=== PATIENT | female | born 1945 | race Caucasian/White ===

== ENCOUNTER 2017-08-13 06:48 | Day surgery (SDC) | payer MEDICARE ==
[~2017-08-13] VITALS: Ht 157.5 cm; Wt 59.0 kg
--- NOTE | ~2017-08-13 | OP ---
PATIENT NAME: TIMOTHY CORDOVA MEDICAL RECORD: [id number] :43 LOCATION:[facility] ADMISSION DATE: SURGEON: SAMANTHA SRIVASTAVA MD DATE OF OPERATION: 08/13/2017 REFERRING PHYSICIAN: Gagan Butler MD PREOPERATIVE DIAGNOSIS: End-stage renal disease. POSTOPERATIVE DIAGNOSIS: End-stage renal disease. OPERATION PERFORMED: Creation of a left brachiocephalic Renae type arteriovenous fistula. SURGEON: Samantha Srivastava MD ANESTHESIA: Regional nerve block plus MAC per WEARING APPAREL FOLDER. PREOPERATIVE NOTE: Ms. Cordova is a 72-year-old white female patient from [place], [place]. She has end-stage renal disease and requires long-term access. I have brought her to the operating room as an outpatient today to do a fistula in her left arm. DESCRIPTION OF PROCEDURE: Under anesthesia including a nerve block, the patient was placed in supine position, prepped and draped in a sterile manner. I examined her arm with Duplex ultrasound after applying topical nitroglycerin and using a Mirian drain as a proximal venous tourniquet. The patient's cephalic vein from antecubital space to the deltopectoral groove was adequate for use. The brachial artery appeared adequate as well. A transverse antecubital incision was made and these vessels were exposed, dissected from the surrounding structures and occluded, and retracted as needed with Silastic vessel loops. The vein was divided distally and ligated with 3-0 Vicryl and tributaries similarly ligated and divided. The brachial artery was mobilized fully and looped with Silastic vessel loops. The vessels were treated with topical papaverine. The vein was then transected and beveled and prepared for anastomosis. The artery was occluded and opened for a distance of about 6 mm. The artery was flushed proximally and distally with heparinized saline as was the vein and an end-to-side, end of vein to side of artery anastomosis was then done with running 7-0 Prolene, and when complete his suture line was hemostatic and good flow was established within the fistula. The wound was irrigated with Ancef and gentamicin solution. Hemostasis obtained with electrocautery. Repeated Doppler examination revealed good continuous pulsatile Doppler flow in the fistula and in the vessels distally. The wound was irrigated with Ancef/gentamicin solution and then closed with interrupted inverted 3-0 Vicryl and running intracuticular 4-0 Monocryl and Dermabond glue. It was dressed with Maxorb Ag, Tegaderm, and Cavilon skin prep. The patient was then taken to the recovery room in stable condition, was transferred to go home later today and follow up with me in my office next week. She was given a prescription for Tramadol 50 mg 1 p.o. every 4 hours p.r.n. for pain, 10 tablets, no refills. She is to continue her renal diet and activities, meds, etc. She may shower and wash over the waterproof plastic dressing as desired. TRANSINT:[id number] Voice Confirmation ID: [id number] DOCUMENT ID: [id number] OPERATIVE REPORT [id number] TIMOTHY CORDOVA JAMES MD at 1123 CC: GAGAN BUTLER MD [id number] DICTATION DATE: 08/13/17 1207 TELEGRAPH DISPATCHER: 08/13/17 1350 [facility] 08/13/[address] [address]
[2017-08-13 07:29] LABS: BASOPHILS 0.7 % (0-2); EOSINOPHILS 7.9 % (0-7); HEMATOCRIT 35.3 % (36.0-48.0); HEMOGLOBIN 11.5 g/dL (12-16); IMMATURE GRANULOCYTES 0.2 % (0-5); LYMPHOCYTES 19.1 % (15-50); MCH 29.7 pg (26.0-34.0); MCHC 32.6 g/dL (31.0-37.0); MCV 91.2 fL (80.0-100.0); MEAN PLATELET VOLUME 10.3 fL (7.4-10.4); MONOCYTES 16.7 % (2-11); NEUTROPHILS 55.4 % (40-80); PLATELET COUNT 217 10x3/uL (130-400); RBC 3.87 10x6/uL (4.00-5.40); RDW 15.9 % (11.5-14.5); WBC 4.6 10x3/uL (4.8-10.8)
[2017-08-13 07:40] LABS: APTT 30.7 SECONDS (22.8-39.4); INR 0.97 (0.85-1.17); PROTIME 12.5 SECONDS (11.6-15.0)
[2017-08-13 07:41] LABS: ANION GAP 10.5 mmol/L (8-16); CALCIUM 8.3 mg/dL (8.5-10.1); CARBON DIOXIDE 30.2 mmol/L (21.0-32.0); CREATININE - SERUM 4.2 mg/dL (0.6-1.3); POTASSIUM - SERUM 3.7 mmol/L (3.5-5.1)
[2017-08-13] MEDS ORDERED: METOPROLOL TART50 MG PO (08:29)
[2017-08-13 08:48] VITALS: Ht 157.5 cm; Wt 59.0 kg
[2017-08-13] MEDS ORDERED: RENVELA800 MG PO (09:09)
[2017-08-13] MEDS ORDERED: HYDRALAZINE HCL50 MG PO (09:10)
[2017-08-13] MEDS ORDERED: FUROSEMIDE40 MG PO (09:10)
[2017-08-13] MEDS ORDERED: DOXYCYCLINE HY100 M2 PO (09:11)
[2017-08-13] MEDS ORDERED: NORVASC5 MG PO (09:11)
[2017-08-13] MEDS ORDERED: CARDURA2 MG PO (09:12)
[2017-08-13] MEDS ORDERED: LOVASTATIN40 MG PO (09:12)
[2017-08-13] MEDS ORDERED: HYDROCODON-ACE1 EAC7 PO (09:13)
[2017-08-13] MEDS ORDERED: ULTRAM50 MG PO (11:57)
== END 2017-08-13 14:30 | disposition home or self-care (01) ==
LOC: D.OPS 06:48
PROVIDERS: Surgery
DX: N18.6 End stage renal disease (principal); Z99.2 Dependence on renal dialysis; Z01.812 Encounter for preprocedural laboratory examination

== ENCOUNTER 2020-07-05 07:05 | Day surgery (SDC) | payer MEDICARE ==
[~2020-07-05] VITALS: Ht 157.5 cm; Wt 72.6 kg
[~2020-07-05 07:05] MED LIST: CARDURA2 MG PO; DOXYCYCLINE HY100 M2 PO; FUROSEMIDE40 MG PO; HYDRALAZINE HCL50 MG PO; HYDROCODON-ACE1 EAC7 PO; LOVASTATIN40 MG PO; METOPROLOL TART50 MG PO; NORVASC5 MG PO; RENVELA800 MG PO; ULTRAM50 MG PO
[2020-07-05 07:27] LABS: BASOPHILS 1.3 % (0-2); EOSINOPHILS 6.1 % (0-7); HEMATOCRIT 32.1 % (36.0-48.0); HEMOGLOBIN 10.8 g/dL (12-16); LYMPHOCYTES 13.3 % (15-50); MCH 31.1 pg (26.0-34.0); MCHC 33.5 g/dL (31.0-37.0); MCV 92.7 fL (80.0-100.0); MEAN PLATELET VOLUME 8.8 fL (7.4-10.4); MONOCYTES 14.1 % (2-11); NEUTROPHILS 65.2 % (40-80); PLATELET COUNT 222 10x3/uL (130-400); RBC 3.46 10x6/uL (4.00-5.40); RDW 14.2 % (11.5-14.5); WBC 6.8 10x3/uL (4.8-10.8)
[2020-07-05 07:39] LABS: CALCIUM 8.5 mg/dL (8.5-10.1); CARBON DIOXIDE 30.6 mmol/L (21.0-32.0); POTASSIUM - SERUM 4.6 mmol/L (3.5-5.1)
[2020-07-05 07:45] LABS: INR 1.06 (0.85-1.17); PROTIME 12.7 SECONDS (11.6-15.0)
[2020-07-05] MEDS ORDERED: HYDROCODON-ACE1 EA10 PO (08:41)
[2020-07-05 08:49] VITALS: Ht 157.5 cm; Wt 72.6 kg
--- NOTE | 2020-07-05 10:53 | NUR ---
NOTED PREOPERATIVELY PATIENT HAS SMALL DARK COLORED WOUND TO SMALL FINGER ON LEFT HAND WITH MODERATE REDNESS AROUND AREA DR SRIVASTAVA NOTIFIED OK TO PROCEED WITH SURGERY.
--- NOTE | 2020-07-05 13:02 | NUR ---
IV IN RIGHT WRIST INFULTRATED ON ADMIT RESTARTES PIV IN RT AC
--- NOTE | 2020-07-05 13:03 | NUR ---
NASAL TRUMPET IN RT NARE ON ADMIT
--- NOTE | 2020-07-05 13:05 | NUR ---
NASAL TRUMPET REMOVED @0609
--- NOTE | 2020-07-19 08:33 | OP ---
PATIENT NAME: TIMOTHY CORDOVA MEDICAL RECORD: [id number] :43 LOCATION:[facility] ADMISSION DATE: SURGEON: SAMANTHA SRIVASTAVA MD DATE OF OPERATION: 07/05/2020 REFERRING PHYSICIAN: Dr. Jalloh. PREOPERATIVE DIAGNOSES: End-stage renal disease, peripheral atherosclerotic disease with ischemic left hand pain and steal syndrome, left arm. POSTOPERATIVE DIAGNOSES: End-stage renal disease, peripheral atherosclerotic disease with ischemic left hand pain and steal syndrome, left arm. SURGEON: Samantha Srivastava MD ANESTHESIA: TIVA and regional nerve block per MULE DEVELOPER. OPERATION PERFORMED: Open revision of left arm brachiocephalic fistula without thrombectomy by implantation of a 4-7 tapered Propaten Intering PTFE graft from the proximal brachial artery to the cephalic vein fistula just above the antecubital space and a ligation and division of the brachiocephalic fistula through the juxta-anastomotic segment in the forearm inferior to the antecubital space close to the arterial anastomosis. PREOPERATIVE NOTE: Ms. Cordova is a 75-year-old female patient with end-stage renal disease, on dialysis with a left arm brachiocephalic fistula who has steal syndrome and is brought to the operating room to correct it. I plan a revision with proximalization of the arterial inflow. DESCRIPTION OF PROCEDURE: Under sedation, the patient was placed in supine position, prepped and draped in a sterile manner. A nerve block was administered by anesthesia. A proximal incision was made and the proximal brachial artery exposed and controlled with Silastic loops. I performed an anastomosis between the 4-mm tapered end of the Propaten 4-7 tapered graft. This was an Intering reinforced graft. The anastomosis to the artery was done with continuous 6-0 Prolene after the artery was flushed proximally and distally with heparinized saline. The graft and artery were then flushed again with heparinized saline after the suture line was completed. The graft was then placed in a subcutaneous tunnel to an incision made above the antecubital space where I exposed the fistula. Another incision was made just below the antecubital space and the original fistula there was ligated and divided close to the arterial anastomosis. The new graft was then anastomosed end-to-end to the arterialized cephalic vein. This was done with running 6-0 Prolene and BioGlue was used for completion of hemostasis. During the course, the vein was flushed before the anastomosis with heparinized saline. When completed and the occluding loops and clamps were released, there was excellent flow in the new hybrid AV graft and there was improved flow in the radial and ulnar arteries to the hand by Doppler. The wounds were irrigated with saline and closed with interrupted inverted 3-0 Vicryl and then running intracuticular 4-0 Stratafix and Dermabond glue. Dressings of Maxorb AG, Tegaderm, and Cavilon skin prep were applied. The patient was then taken to the recovery room in stable condition and will be discharged to the home later today to follow up in my office. She will continue all of her same medications, diet, dialysis schedule, etc. OPERATIVE REPORT [id number] TIMOTHY CORDOVA J TRANSINT:[id number] Voice Confirmation ID: [id number] DOCUMENT ID: [id number] SAMANTHA SRIVASTAVA MD at 0833 CC: STARLA MOSCOSO MD [id number] DICTATION DATE: 07/18/20 1123 [facility]: 07/18/20 1331 [facility] 07/05/20 [id number] [place] [address]
== END 2020-07-05 15:00 | disposition home or self-care (01) ==
LOC: D.OPS 07:05
PROVIDERS: ATTEND Surgery
DX: N18.6 End stage renal disease (principal); Z99.2 Dependence on renal dialysis; T82.898A Other specified complication of vascular prosthetic devices, implants and grafts, initial encounter; I70.268 Atherosclerosis of native arteries of extremities with gangrene, other extremity; I50.9 Heart failure, unspecified; I10 Essential (primary) hypertension; E11.9 Type 2 diabetes mellitus without complications; E07.9 Disorder of thyroid, unspecified